=== PATIENT | female | born 1950 | race Caucasian/White ===

== ENCOUNTER → 2025-01-27 12:04 | Outpatient (CLI) | payer MEDICARE, SELFPAY ==
--- NOTE | 2025-01-27 12:07 | DI.MG.S_ITS ---
MM diagnostic mammo implant BI, US breast BI limited: 01/27/2025 BI-RADS: 2 CLINICAL: 74-year old female for bilateral diagnostic mammogram and bilateral diagnostic breast ultrasound. Tyrer-Cuzick lifetime risk of 4.9%. No personal or first-degree family history of breast cancer. The patient has bilateral implants. PRIOR EXAMS: None. This is a baseline mammogram. MAMMOGRAPHY TECHNIQUE: 2D and 3D (tomosynthesis) digital mammographic views obtained, with additional images as needed for full coverage. Current study was also evaluated with a Computer Aided Detection (CAD) system. ULTRASOUND TECHNIQUE Real-time otto scale imaging of the area of clinical interest was performed with image documentation. DENSITY C. The breasts are heterogeneously dense, which may obscure small masses. IMPLANTS There are ruptured, retropectoral, silicone implants. MAMMOGRAPHY FINDINGS Bilateral: Ruptured silicone implants. There are no suspicious masses, calcifications, or other findings in the breast. ULTRASOUND FINDINGS Right: Upper Outer at 11:00, 9 cm from nipple: There is free silicone. This finding is consistent with extracapsular rupture of silicone implant. Left: Upper Outer at 2:00, 11 cm from nipple: There is free silicone. This finding is consistent with extracapsular rupture of silicone implant. IMPRESSION: * No evidence of malignancy with benign findings. * Implant noted with definite rupture - details above. RECOMMENDATIONS Bilateral * Recommend clinical follow up for implant rupture with plastic surgery. * Annual screening mammography in one year. COMMENTS: Findings and recommendations were discussed with the patient by Dr. Isabel over the phone at the time of imaging completion. OVERALL ASSESSMENT CATEGORY BI-RADS-2: Benign. The [employer] recommends annual screening mammography beginning at age 40 for women with average risk of breast cancer. ELECTRONICALLY SIGNED: Genet Isabel M.D. on 01/27/2025 at 04:38:26 PM PT Interpreting Station ID: [id number]
--- NOTE | 2025-01-27 12:08 | DI.US.S_ITS ---
PROCEDURE: US BREAST BI LIMITED COMPARISON: None. INDICATIONS: MASTODYNIA FINDINGS: IMPRESSION: Dictated by: Genet Isabel M.D.,Ph.D. on 01/27/2025 at 13:58 Approved by: Genet Isabel M.D.,Ph.D. on 01/27/2025 at 14:35
--- NOTE | 2025-01-27 13:21 | DI.US.S_ITS ---
Patient Name: ADI MARIN date: 1950 Sex: F Attending Physician: Janes Indications: Date: 01/27/2025 16:38 At the request of: ALKA NARVAEZ Procedure: US breast BI limited MM diagnostic mammo implant BI, US breast BI limited: 01/27/2025 BI-RADS: 2 CLINICAL: 74-year old female for bilateral diagnostic mammogram and bilateral diagnostic breast ultrasound. Tyrer-Cuzick lifetime risk of 4.9%. No personal or first-degree family history of breast cancer. The patient has bilateral implants. PRIOR EXAMS: None. This is a baseline mammogram. MAMMOGRAPHY TECHNIQUE: 2D and 3D (tomosynthesis) digital mammographic views obtained, with additional images as needed for full coverage. Current study was also evaluated with a Computer Aided Detection (CAD) system. ULTRASOUND TECHNIQUE Real-time otto scale imaging of the area of clinical interest was performed with image documentation. DENSITY C. The breasts are heterogeneously dense, which may obscure small masses. IMPLANTS There are ruptured, retropectoral, silicone implants. MAMMOGRAPHY FINDINGS Bilateral: Ruptured silicone implants. There are no suspicious masses, calcifications, or other findings in the breast. ULTRASOUND FINDINGS Continued Report - Page 2 of 2 Patient Name: ADI MARIN date: 1950 Sex: F Attending Physician: Janes Indications: Date: 01/27/2025 16:38 At the request of: ALKA NARVAEZ Procedure: US breast BI limited Right: Upper Outer at 11:00, 9 cm from nipple: There is free silicone. This finding is consistent with extracapsular rupture of silicone implant. Left: Upper Outer at 2:00, 11 cm from nipple: There is free silicone. This finding is consistent with extracapsular rupture of silicone implant. IMPRESSION: * No evidence of malignancy with benign findings. * Implant noted with definite rupture - details above. RECOMMENDATIONS Bilateral * Recommend clinical follow up for implant rupture with plastic surgery. * Annual screening mammography in one year. COMMENTS: Findings and recommendations were discussed with the patient by Dr. Isabel over the phone at the time of imaging completion. OVERALL ASSESSMENT CATEGORY BI-RADS-2: Benign. The [employer] recommends annual screening mammography beginning at age 40 for women with average risk of breast cancer. ELECTRONICALLY SIGNED: Genet Isabel M.D. on 01/27/2025 at 04:38:26 PM PT Interpreting Station ID: [id number]
== END ==
PROVIDERS: Family Provider Family Medicine; PCP Family Medicine; Referring Provider Family Medicine; Visit Provider Family Medicine
DX: N64.4 Mastodynia (principal); T85.898A Other specified complication of other internal prosthetic devices, implants and grafts, initial encounter
CPT/HCPCS: 76642; 77066; G0279